=== PATIENT | female | born 1965 | race Native Hawaiian/Other Pacific Islander ===

== ENCOUNTER 2019-08-05 12:21 | Inpatient (IN) | payer BC ==
[~2019-08-05] VITALS: Ht 165.1 cm; Wt 56.7 kg
--- NOTE | 2019-08-05 12:42 | NUR ---
Dr Samson is at bedside doing the MSE.
[2019-08-05] MEDS ORDERED: ASPIRIN 325 MG TABLET PO ONE (13:00)
[2019-08-05] MEDS ORDERED: MECLIZINE HCL 25 MG TABLET PO ONE (13:00)
[2019-08-05] MEDS ORDERED: ASPIRIN 325 MG TABLET ONE (13:03)
[2019-08-05 13:04] LABS: BASOPHILS % (AUTO) 0.4 % (0.0-2.0); EOSINOPHILS % (AUTO) 0.6 % (0.0-7.0); HEMATOCRIT 38.4 % (31.2-41.9); LYMPHOCYTES # (AUTO) 1.2 K/uL (20.0-40.0); MEAN CORPUSCULAR HGB CONC 34 g/dL (32.3-35.6); MEAN CORPUSCULAR VOLUME 91.7 fL (75.5-95.3); MONOCYTES # (AUTO) 0.3 K/uL (2.0-10.0); MONOCYTES % (AUTO) 4.6 % (0.0-11.0); NEUTROPHILS % (AUTO) 72.4 % (38.5-71.5); PLATELET COUNT (AUTO) 184 K/uL (179-408); RED BLOOD CELL COUNT(AUTO) 4.18 MIL/uL (3.63-4.92); WHITE BLOOD COUNT (AUTO) 5.5 K/uL (3.8-11.8)
[2019-08-05] MEDS ORDERED: MECLIZINE HCL 25 MG TABLET ONE (13:04)
[2019-08-05 13:23] LABS: BILIRUBIN,DIRECT 0.2 mg/dL (0.0-0.2); BILIRUBIN,TOTAL 0.8 mg/dL (0.2-1.0); MAGNESIUM 1.8 mg/dL (1.8-2.4); TOTAL PROTEIN, SERUM 7.3 g/dL (6.4-8.2)
[2019-08-05 13:32] LABS: CREATININE 0.6 mg/dL (0.6-1.3); POTASSIUM 3.3 mmol/L (3.5-5.1)
[2019-08-05] MEDS ORDERED: ENOXAPARIN SODIUM 60 MG/0.6 ML DISP.SYRIN SQ ONE ×2 (13:45→13:48)
[2019-08-05] MEDS ORDERED: NITROGLYCERIN 0.4 MG/TAB BOTTLE SL ONE ×2 (13:45→13:48)
--- NOTE | 2019-08-05 13:45 | NUR ---
PATIENT WENT TO BATHROOM NO S/S ANY DISTRESS.
[2019-08-05] MEDS ORDERED: IOHEXOL 350 100 ML INFUS..BTL ONE (14:48)
[2019-08-05] MEDS ORDERED: IV NORMAL SALINE 250 ML IV ONE (14:49)
[2019-08-05] MEDS ORDERED: SWABABLE VALVE TRANSFER SET EA MC ONE (14:49)
[2019-08-05] MEDS ORDERED: MAGNESIUM HYDROXIDE 30 ML LIQUID UDC PO PRN (15:15)
[2019-08-05] MEDS ORDERED: POTASSIUM CHLORIDE 20 MEQ TAB.PRT.SR PO ONE (15:15)
[2019-08-05] MEDS ORDERED: Z GUARD REMEDY PASTE 57 GM TUBE TOP PRN (15:15)
[2019-08-05] MEDS ORDERED: ONDANSETRON 4 MG/2 ML VIAL IV PRN (15:15)
[2019-08-05] MEDS ORDERED: NITROGLYCERIN 0.4 MG/TAB BOTTLE SL PRN (15:15)
[2019-08-05] MEDS ORDERED: HYDROCODONE/APAP 5-325MG TABLET PO PRN (15:15)
[2019-08-05] MEDS ORDERED: ACETAMINOPHEN 325 MG TABLET PO PRN (15:15)
[2019-08-05] MEDS ORDERED: ZOLPIDEM 5 MG TABLET PO PRN (15:15)
--- NOTE | 2019-08-05 15:50 | NUR ---
RECEIVED PT FROM [facility] ER VIA WHEELCHAIR TO TELEMETRY UNIT. NO ACUTE DISTRESS NOTED. NO SOB NOTED. PT DENIES PAIN AT THIS TIME. PT ALERT AND COOPERATIVE X 3. PT IS AMBULATORY. IV ACCESS GAUGE 18 ON RIGHT AC. PT PLACED ON TELE MONITOR WITH SINUS RHYTHM. BED LOCKED AND IN LOW POSITION. CALL LIGHT WITHIN REACH. PT ON REGULAR DIET. WILL CONTINUE TO MONITOR. WILL CONTINUE WITH PLAN OF CARE.
[2019-08-05 16:00] VITALS: BP 107/77
--- NOTE | 2019-08-05 18:00 | NUR ---
PT IS RESTING COMFORTABLY IN BED. NO SIGNS OF SOB OR ACUTE DISTRESS. PATIENT ALERT AND ORIENTED X 3. PT COOPERATIVE. PT DENIES PAIN AT THIS TIME. TELE MONITORING SHOWS SINUS RHYTHM. CALL LIGHT WITHIN REACH. WILL CONTINUE TO MONITOR. WILL GIVE REPORT ACCORDINGLY.
--- NOTE | 2019-08-05 19:00 | NUR ---
Patient denies any chest pain at this time, patient is comfortable.
[2019-08-05 20:00] VITALS: BP 114/79
[2019-08-05] MEDS: ATORVASTATIN 20 MG TABLET PO SCH ×2 (20:39→21:00)
[2019-08-05] MEDS: ENOXAPARIN SODIUM 60 MG/0.6 ML DISP.SYRIN SQ SCH (20:39)
[2019-08-05] MEDS ORDERED: ATORVASTATIN 20 MG TABLET PO SCH (21:00)
[2019-08-05] MEDS: IV NS 1000 ML 1,000 ML IV PRN ×2 (23:52→23:56)
--- NOTE | 2019-08-05 23:57 | NUR ---
patient refused iv fluids, explained risks and benefits, patient still refusing iv fluids. per patient would rather drink more water.
[2019-08-06 00:15] VITALS: BP_SYST 101; BP_SYST 102; BP_SYST 99; BP_DIAS 69; BP_DIAS 72; BP_DIAS 74
[2019-08-06 04:00] VITALS: BP 96/61
[2019-08-06] MEDS: ATORVASTATIN 20 MG TABLET PO SCH (05:44)
[2019-08-06 06:39] LABS: BASOPHILS % (AUTO) 0.5 % (0.0-2.0); EOSINOPHILS # (AUTO) 0.1 K/uL (0.0-0.7); HEMOGLOBIN 12.2 g/dL (10.9-14.3); LYMPHOCYTES # (AUTO) 1.9 K/uL (20.0-40.0); LYMPHOCYTES % (AUTO) 31.8 % (20.5-51.5); MEAN CORPUSCULAR HEMOGLOBIN 30.7 uug (24.7-32.8); MEAN CORPUSCULAR HGB CONC 34 g/dL (32.3-35.6); MONOCYTES # (AUTO) 0.3 K/uL (2.0-10.0); MONOCYTES % (AUTO) 5.6 % (0.0-11.0); NEUTROPHILS # (AUTO) 3.7 K/uL (1.8-8.9); NEUTROPHILS % (AUTO) 61.1 % (38.5-71.5); PLATELET COUNT (AUTO) 176 K/uL (179-408); RED BLOOD CELL COUNT(AUTO) 3.96 MIL/uL (3.63-4.92)
--- NOTE | 2019-08-06 06:52 | NUR ---
PATIENT DENIES CHEST PAIN AT THIS TIME, REFUSED IV FLUIDS, PER PATIENT BP RUNS IN THE HIGH 90'S AND DBP IN THE 60'S. SHE WOULD RATHER DRINK WATER, PATIENT REFUSED ATORVASTATIN, EXPLAINED RISKS AND BENEFITS. REFUSED LABS IN AM BUT WAS ABLE TO EDUCATE AND PATIENT AGREED TO HAVING BLOOD DRAW. ENDORSED TO AM SHIFT. PATIENT IS COMFORTABLE AT THIS TIME.
[2019-08-06 07:15] LABS: CREATININE 0.6 mg/dL (0.6-1.3); MAGNESIUM 1.9 mg/dL (1.8-2.4); PHOSPHOROUS 3.2 mg/dL (2.5-4.9); POTASSIUM 3.6 mmol/L (3.5-5.1)
--- NOTE | 2019-08-06 07:20 | NUR ---
PATIENT RECEIVED IN STABLE CONDITION, RESTING IN BED. ALERT ORIENTED x 4. NO SOB OR ACUTE DISTRESS NOTED. SIDE RAILS UP X 2 BED IN LOWEST POSITION. CALL LIGHT WITHIN REACH. WILL CONTINUE TO MONITOR THROUGHOUT SHIFT.
[2019-08-06] MEDS: ENOXAPARIN SODIUM 60 MG/0.6 ML DISP.SYRIN SQ SCH (08:50)
[2019-08-06] MEDS ORDERED: ASPIRIN 81 MG TAB.CHEW PO SCH (09:00)
[2019-08-06 11:30] VITALS: BP 97/64
--- NOTE | 2019-08-06 11:46 | NUR ---
PATIENT IS REFUSING FLUIDS AT THE MOMENT.
--- NOTE | 2019-08-06 12:13 | NUR ---
[employer] SHIFT SUPERVISOR IN PT'S ROOM CONDUCTING CAROTID ULTRASOUND.
--- NOTE | 2019-08-06 15:45 | NUR ---
PATIENT DISCHARGED TO HOME. REVIEWED D/C INSTRUCTIONS WITH PATIENT AND SON. PATIENT AND SON VERBALLY UNDERSTAND INSTRUCTIONS. IV REMOVED, WRIST BAND CUT OFF AND PATIENT ACCOMPANIED DOWN TO CAR.
[2019-08-06 15:53] VITALS: BP 95/63
[2019-08-06] MEDS ORDERED: ATORVASTATIN 20 MG TABLET PO SCH (21:00)
[2019-08-09] MEDS ORDERED: ATOR20TA PO (19:25)
[2019-08-09] MEDS ORDERED: ASPI81TA31 PO (19:25)
== END 2019-08-06 16:00 | disposition home or self-care (01) | DRG 303 ==
LOC: ER 12:21 → TELE3 15:09
PROVIDERS: ADMIT Nurse Practitioner Acute Care; ATTEND Nurse Practitioner Acute Care
DX: I25.111 Atherosclerotic heart disease of native coronary artery with angina pectoris with documented spasm (principal); I50.30 Unspecified diastolic (congestive) heart failure; E87.6 Hypokalemia; Z98.82 Breast implant status; G43.109 Migraine with aura, not intractable, without status migrainosus; H93.3X9 Disorders of unspecified acoustic nerve
CPT/HCPCS: 36415; 70030-TC; 70450; 71045; 71275; 83735; 84100; 85025; 93005; 93307; 93880; A4663; G0378; J1650; J7030; J7050; J8597; Q9967